=== PATIENT | male | born 1995 | race Caucasian/White ===

== ENCOUNTER → 2017-01-30 | Outpatient (REF) ==
[~2017-01-30] MED LIST: CIPRO 250MG TA250 MG PO; DITROPAN XL10 MG PO; NO HOME MEDICATIONS; NORCO 325 MG-51 TAB PO
[2017-01-31 00:07] LABS: CHLAMYDIA/TRACH by PCR Male NOT DETECTED; Neisseria Gon by PCR Male NOT DETECTED
== END ==
LOC: ZLAB.WCH 18:03
PROVIDERS: Nurse Practitioner Family
DX: Z01.89 Encounter for other specified special examinations (principal)

== ENCOUNTER → 2018-06-19 | Outpatient (REF) | LOC: ZLAB.WCH 16:00 | DX: Z01.89 Encounter for other specified special examinations (principal) ==